=== PATIENT | male | born 1995 | race Caucasian/White ===

== ENCOUNTER 2018-04-11 18:28 | Emergency (ER) | payer OTHER ==
[2018-04-11] MEDS: diphenhydrAMINE INJ 50MG/ML VIAL (J1200) IV (18:52)
[2018-04-11] MEDS: dexameTHASONE 20 MG/5 ML VIAL (J1100) IV (19:00)
== END 2018-04-11 19:33 | disposition home or self-care (01) ==
LOC: M ED 18:28
DX: R21 Rash and other nonspecific skin eruption (principal); T78.40XA Allergy, unspecified, initial encounter; X58.XXXA Exposure to other specified factors, initial encounter; Y92.89 Other specified places as the place of occurrence of the external cause; Z87.891 Personal history of nicotine dependence
CPT/HCPCS: J1200

== ENCOUNTER 2018-07-03 05:06 | Emergency (ER) | payer OTHER ==
[~2018-07-03] VITALS: Ht 170.2 cm; Wt 99.5 kg
[2018-07-03 05:46] LABS: BASO % 0.3 % (0.0-1.0); EOS # 0.2 10^3/uL (0.0-0.50); EOS % 1.1 % (0.0-3.0); HEMATOCRIT 45.5 % (42.0-52.0); HEMOGLOBIN 16.5 g/dl (13.5-17.5); LYMPH # 1.1 10^3/uL (1.5-6.5); LYMPH % 7.1 % (24.0-44.0); MEAN CORPUSCULAR HEMOGLOBIN 28.4 pg (27.0-33.0); MEAN CORPUSCULAR HGB CONC 36.3 g/dl (32.0-36.5); MEAN CORPUSCULAR VOLUME 78.2 fl (80.0-96.0); MONO # 1.1 10^3/uL (0.0-0.8); MONO % 7.3 % (0.0-5.0); NEUTROPHILS % 83.9 % (36.0-66.0); PLATELET COUNT, AUTOMATED 253 10^3/uL (150-450); RED BLOOD COUNT 5.82 10^6/uL (4.30-6.10); WHITE BLOOD COUNT 15.5 10^3/uL (4.0-10.0)
[2018-07-03 06:02] LABS: ALBUMIN 4.1 GM/DL (3.2-5.2); ALT/SGPT 28 U/L (12-78); BILIRUBIN,DIRECT 0.1 MG/DL (0.0-0.2); BILIRUBIN,TOTAL 0.5 MG/DL (0.2-1.0); BLOOD UREA NITROGEN 11 MG/DL (7-18); CALCIUM LEVEL 8.3 MG/DL (8.5-10.1); CARBON DIOXIDE LEVEL 26 MEQ/L (21-32); CHLORIDE LEVEL 106 MEQ/L (98-107); CREATININE FOR GFR 1.04 MG/DL (0.70-1.30); GLOMERULAR FILTRATION RATE > 60.0 (>60); GLUCOSE, FASTING 91 MG/DL (70-100); LIPASE 100 U/L (73-393); POTASSIUM SERUM 4.1 MEQ/L (3.5-5.1); SODIUM LEVEL 141 MEQ/L (136-145); TOTAL PROTEIN 7.3 GM/DL (6.4-8.2)
[2018-07-03] MEDS ORDERED: KETOROLAC 30 MG/ML VIAL (J1885) IV ONE (06:15)
[2018-07-03] MEDS ORDERED: ONDANSETRON 4MG/2ML VIAL (J2405) IV ONE (06:15)
--- NOTE | 2018-07-03 07:03 | REPVR ---
EXAM: US Abdomen Limited, Right Upper Quadrant EXAM DATE/TIME: 07/03/2018 6:42 AM CLINICAL HISTORY: 22 years old, male; Pain; Abdominal pain; Acute; Additional info: Ruq pain TECHNIQUE: Real-time ultrasound of the abdomen with image documentation. Examination was focused on the right upper quadrant. COMPARISON: No relevant prior studies available. FINDINGS: Liver: Limited visualization of the liver which appears to be attenuating with slightly increased echogenicity. Gallbladder: No gallbladder wall thickening measuring 2 mm. Non-shadowing non-mobile gallbladder nodule is consistent with polyps measuring up to 9 mm. Common bile duct: The common bile duct measures 3-4 mm. Pancreas: The pancreas is obscured by gas shadowing. Right kidney: The right kidney is normal measuring 10.6 cm. IMPRESSION: 1. Fatty infiltration of the liver. 2. Several gallbladder polyps are noted measuring up to 9 mm. 3. Otherwise negative right upper quadrant sonogram. Electronically signed by: Noe Romero On 07/03/2018 07:03:41 AM
[2018-07-03] MEDS ORDERED: GASTROGRAFIN SOLUTION 30ML (Q9963) As Ordered ONE (07:30)
[2018-07-03] MEDS: GASTROGRAFIN SOLUTION 30ML PO SCH ×2 (07:49→08:21)
[2018-07-03] MEDS ORDERED: ISOVUE-370 76% 100ML VIAL (Q9967) As Ordered ONE (09:22)
[2018-07-03] MEDS ORDERED: ONDA4TAB6 PO (09:57)
[2018-07-03 10:11] VITALS: BP 129/60
--- NOTE | 2018-07-03 10:12 | REP ---
CT ABDOMEN AND PELVIS WITH ORAL AND IV CONTRAST: TECHNIQUE: Axial contrast enhanced images from the lung bases to the pubic symphysis using 100 mL Isovue 370 intravenous contrast material with multiplanar reformations. The liver, spleen, adrenals, pancreas, and kidneys appear normal. There is no hydronephrosis. There are three subcentimeter enhancing nodules in the gallbladder compatible with gallbladder polyps as seen on prior ultrasound today. There is no gallbladder wall edema. There is no abdominal aortic aneurysm. There is no adenopathy. There is no free air or free fluid. There is no bowel wall thickening. A few mildly dilated small bowel loops are seen in the right upper quadrant which may represent a mild ileus. No pelvic mass is seen. Urinary bladder is grossly unremarkable. No anterior abdominal wall defect is seen. IMPRESSION: No free air or free fluid. There are three subcentimeter nodules in the gallbladder compatible with gallbladder polyps. A few mildly dilated small bowel loops in the right upper quadrant may represent mild ileus. Electronically Signed by Wan Mark MD 07/04/2018 09:07 A
--- NOTE | 2018-07-03 15:44 | ED PDOC ---
Post-Departure Follow-Up ft [facility] us faxed formal report of gb us for fu Kp Wood MD Jul 03, 2018 15:44
--- NOTE | 2018-07-04 13:57 | ED PDOC ---
Post-Departure Follow-Up ft [facility] us faxed formal report of ct abd/p for fu Kp Wood MD Jul 04, 2018 13:57
== END 2018-07-03 10:13 | disposition home or self-care (01) ==
LOC: M ED 05:06
DX: K52.9 Noninfective gastroenteritis and colitis, unspecified (principal); Z72.0 Tobacco use; R93.2 Abnormal findings on diagnostic imaging of liver and biliary tract; K76.0 Fatty (change of) liver, not elsewhere classified; K82.4 Cholesterolosis of gallbladder; Z91.040 Latex allergy status
CPT/HCPCS: 74177; 76705; 80048; 80076; 81001; 83690; 85025; 96374; 96375; 99284; J1885; J2405; Q9967

== ENCOUNTER 2018-10-31 10:17 | Emergency (ER) | payer OTHER ==
[~2018-10-31] VITALS: Ht 167.6 cm; Wt 102.3 kg
[~2018-10-31 10:17] MED LIST: ONDA4TAB6 PO
[2018-10-31] MEDS ORDERED: IBUP-1114 PO (11:57)
--- NOTE | 2018-10-31 13:42 | REP ---
CT lumbar spine without contrast History: Back pain There is no disc bulge or herniation at the L1-2 through L3-4 and L5-L1 levels. The nerves exit the neural foramina without compression. The left L5 and S1 nerves are conjoined. A diffuse disc bulge is present at the L4-5 level. There is minimal compression of the thecal sac. The L4 nerves exit the neural foramina without compression. The intervertebral discs and vertebral bodies are normal in height. There is no fracture or subluxation. Impression: Diffuse disc bulge at the L4-5 level with minimal thecal sac compression. Electronically Signed by Daren Vyas MD 10/31/2018 01:34 P
[2018-10-31] MEDS ORDERED: CYCL10TA PO (13:52)
[2018-10-31] MEDS ORDERED: IBUP80TA PO (13:52)
[2018-10-31 14:07] VITALS: BP 131/65
== END 2018-10-31 14:08 | disposition home or self-care (01) ==
LOC: M ED 10:17
DX: M51.06 Intervertebral disc disorders with myelopathy, lumbar region (principal); M62.830 Muscle spasm of back; R20.2 Paresthesia of skin; R39.15 Urgency of urination; M54.9 Dorsalgia, unspecified; Z91.040 Latex allergy status; Z79.1 Long term (current) use of non-steroidal anti-inflammatories (NSAID)

== ENCOUNTER 2018-11-05 11:12 | Emergency (ER) | payer OTHER ==
[~2018-11-05] VITALS: Ht 167.6 cm; Wt 105.7 kg
[~2018-11-05 11:12] MED LIST changes: +CYCL10TA PO; +IBUP-1114 PO; +IBUP80TA PO
[2018-11-05 12:07] LABS: BASO % 0.5 % (0.0-1.0); EOS % 0.4 % (0.0-3.0); HEMATOCRIT 45.2 % (42.0-52.0); HEMOGLOBIN 16.2 g/dl (13.5-17.5); LYMPH # 1.7 10^3/uL (1.5-6.5); MEAN CORPUSCULAR HEMOGLOBIN 27.8 pg (27.0-33.0); MEAN CORPUSCULAR HGB CONC 35.8 g/dl (32.0-36.5); MEAN CORPUSCULAR VOLUME 77.7 fl (80.0-96.0); MONO # 0.4 10^3/uL (0.0-0.8); MONO % 4.7 % (0.0-5.0); NEUTROPHILS % 73.2 % (36.0-66.0); PLATELET COUNT, AUTOMATED 274 10^3/uL (150-450); RED BLOOD COUNT 5.82 10^6/uL (4.30-6.10); WHITE BLOOD COUNT 8.2 10^3/uL (4.0-10.0)
[2018-11-05 12:23] LABS: BLOOD UREA NITROGEN 10 MG/DL (7-18); CALCIUM LEVEL 8.7 MG/DL (8.5-10.1); CARBON DIOXIDE LEVEL 27 MEQ/L (21-32); CHLORIDE LEVEL 106 MEQ/L (98-107); CREATININE FOR GFR 0.94 MG/DL (0.70-1.30); GLOMERULAR FILTRATION RATE > 60.0 (>60); GLUCOSE, FASTING 93 MG/DL (70-100); SODIUM LEVEL 139 MEQ/L (136-145)
[2018-11-05 14:15] VITALS: BP 142/75
--- NOTE | 2018-11-05 14:39 | REP ---
MRI LUMBAR SPINE WITHOUT CONTRAST: HISTORY: Rule out cauda equina. Lumbar disc herniation. Comparison CT study lumbar spine October 31, 2018. TECHNIQUE: Sagittal and axial T1- and T2-weighted scans are acquired in the usual fashion with and without fat saturation. Sequences include spin echo, turbo spin-echo, and STIR imaging sequences. MRI FINDINGS: Lumbar vertebral body heights are preserved. Alignment is normal. The tip of the conus medullaris is normal in position and appearance at L1. No extra vertebral abnormality is observed. No lumbar disc protrusion is seen at any level. There is no evidence of central canal stenosis or neural foraminal encroachment. Pedicles and posterior elements are intact. There is no evidence of spondylolysis or spondylolisthesis. Facets are normally aligned. IMPRESSION: Normal MRI study of the lumbar spine. Electronically Signed by Andrzej Goss MD 11/05/2018 05:13 P
== END 2018-11-05 14:38 | disposition home or self-care (01) ==
LOC: M ED 14:17
DX: M54.16 Radiculopathy, lumbar region (principal); Z79.899 Other long term (current) drug therapy; Z91.040 Latex allergy status